=== PATIENT | male | born 1970 | race Two or more races ===

== ENCOUNTER 2020-05-10 08:26 | Emergency (ER) | payer OTHER ==
[~2020-05-10] VITALS: Ht 170.2 cm; Wt 87.1 kg
[2020-05-10 10:14] VITALS: BP 174/91
== END 2020-05-10 09:48 | disposition home or self-care (01) ==
LOC: ER 08:26
DX: S00.11XA Contusion of right eyelid and periocular area, initial encounter (principal); W18.39XA Other fall on same level, initial encounter; Y93.89 Activity, other specified; Y92.89 Other specified places as the place of occurrence of the external cause; Y99.8 Other external cause status
CPT/HCPCS: 70450

== ENCOUNTER 2022-02-04 04:38 | Emergency (ER) | payer OTHER ==
[~2022-02-04] VITALS: Ht 170.2 cm; Wt 84.4 kg
[2022-02-04] MEDS ORDERED: predniSONE 20 MG TAB PO ONE (05:30)
[2022-02-04 05:40] VITALS: BP 145/98
== END 2022-02-04 05:58 | disposition home or self-care (01) ==
LOC: ER 04:38
DX: R09.1 Pleurisy (principal)
CPT/HCPCS: 99283; J7512